=== PATIENT | male | born 1990 | race Caucasian/White ===

== ENCOUNTER 2017-12-22 10:01 | Emergency (ER) | payer BC, OTHER ==
[~2017-12-22] VITALS: Ht 188 cm; Wt 93.2 kg
[2017-12-22 10:22] VITALS: Ht 188 cm; Wt 93.2 kg
[2017-12-22] MEDS ORDERED: IBUPROFEN800 MG PO (13:06)
[2017-12-22] MEDS ORDERED: CYCLOBENZAPRINE10 MG PO (13:06)
[2017-12-22] MEDS ORDERED: ACETAMINOPHEN500 M1 PO (13:06)
[2017-12-22 15:34] VITALS: BP 126/056
== END 2017-12-22 15:36 | disposition home or self-care (01) ==
LOC: D.ER 10:01
DX: M25.561 Pain in right knee (principal); M23.91 Unspecified internal derangement of right knee